=== PATIENT | female | born 1970 | race Caucasian/White ===

== ENCOUNTER 2022-09-25 06:34 | Day surgery (SDC) | payer BC ==
[2022-09-23 15:11] VITALS: BMI 29.2
[2022-09-25] MEDS ORDERED: PROPOFOL 20 ML ONE ×2 (07:54)
== END 2022-09-25 09:05 | disposition home or self-care (01) ==
LOC: CSHSDC 06:34
PROVIDERS: ATTEND Surgery
PROC: 0DDG8ZX Extraction of Left Large Intestine, Via Natural or Artificial Opening Endoscopic, Diagnostic (ICD-10-PCS; principal; 2022-09-25)
DX: Z12.11 Encounter for screening for malignant neoplasm of colon (principal); D12.4 Benign neoplasm of descending colon
CPT/HCPCS: 88305; J2704

== ENCOUNTER 2022-10-29 11:08 | Outpatient (CLI) | payer BC | END 2022-10-29 11:09 | disposition home or self-care (01) | LOC: CSHMAMMO 11:08 | PROVIDERS: ATTEND Family Medicine | DX: Z12.31 Encounter for screening mammogram for malignant neoplasm of breast (principal) | CPT/HCPCS: 77063; 77067 ==